=== PATIENT | female | born 1995 | race Caucasian/White ===

== ENCOUNTER 2017-08-13 12:43 | Emergency (ER) | payer MEDICAID, OTHER ==
[~2017-08-13] VITALS: Ht 167.6 cm; Wt 85.0 kg
[2017-08-13 12:46] VITALS: BP 117/57
[2017-08-13] MEDS ORDERED: MUPI22OI30 TOP (13:29)
[2017-08-13] MEDS ORDERED: SULF1TAB49 PO (13:29)
== END 2017-08-13 13:33 | disposition home or self-care (01) ==
LOC: ER 12:44
DX: R21 Rash and other nonspecific skin eruption (principal); Z88.8 Allergy status to other drugs, medicaments and biological substances; Z79.899 Other long term (current) drug therapy
CPT/HCPCS: 99283